=== PATIENT | female | born 1980 | race Caucasian/White ===

== ENCOUNTER 2023-07-16 12:53 | Outpatient (CLI) | payer OTHER, SELFPAY ==
[2023-07-16 14:48] LABS: Basophils # 0.1 K/mm3 (0-0.2); Basophils % 0.5 % (0.1-2.0); Eosinophils # 0.2 K/mm3 (0.0-0.4); Eosinophils % 2.6 % (0.1-12.0); Hematocrit 41.2 % (37.0-47.0); Hemoglobin 13.2 g/dL (12.2-16.2); Lymphocytes # 2.3 K/mm3 (0.7-4.5); Mean Corpuscular Hemoglobin 28.4 pg (27.0-31.2); Mean Corpuscular Volume 88.8 fl (81-99); Mean Platelet Volume 9.7 fl (7.4-10.4); Monocytes # 0.5 K/mm3 (0.1-1.0); Monocytes % 5.9 % (1.7-9.3); Platelet Count 295 K/mm3 (142-424); Red Blood Count 4.64 M/mm3 (4.20-5.40); Red Cell Distribution Width 14.3 % (11.5-17.5); White Blood Count 9.1 K/mm3 (4.8-10.8)
[2023-07-16 15:08] LABS: Chloride 107 mmol/L (98-107); Potassium 3.7 mmoL/L (3.5-5.1); Sodium 140 mmol/L (136-145)
[2023-07-16 15:11] LABS: Alanine Aminotransferase 20 U/L (12-78); Albumin/Globulin Ratio 1.5 (1.1-1.8); Alkaline Phosphatase 73 U/L (38-126); Anion Gap 10.7 mEq/L (5-15); Aspartate Amino Transferase 27 U/L (14-36); Bilirubin,Total 0.4 mg/dl (0.2-1.3); Blood Urea Nitrogen 15 mg/dl (7-17); Calcium 9.1 mg/dl (8.4-10.2); Carbon Dioxide 26 mmol/L (22.0-30.0); Cholesterol 199 mg/dl (140-200); Estimated Glomerular Filt Rate 108 ml/min (>60); GFR (African American) 131 ML/MIN (>60); Globulin 2.7 g/dL (1.3-3.2); Glucose 95 mg/dl (74-100); Total Protein,Serum 6.7 g/dl (6.3-8.2); Triglycerides 325 mg/dl (30-150); VLDL Cholesterol 65 mg/dL (0-40)
[2023-07-16 15:12] LABS: Chol/HDL Ratio 5.9 (1-3.5); HDL Cholesterol 34 mg/dl (40-60)
[2023-07-16 15:22] LABS: Direct LDL Cholesterol 97.87 mg/dL (100-129)
[2023-07-16 15:28] LABS: 25-OH Vitamin D, Total 14.3 ng/mL (30-100)
[2023-07-16 15:45] LABS: Thyroid Stimulating Hormone 3.51 uIU/mL (0.465-4.68)
[2023-07-16 16:04] LABS: Vitamin B12 730 pg/mL (239-931)
[2023-07-16 18:05] LABS: Hemoglobin A1C 5.2 % (4.0-6.0)
== END 2023-07-16 23:59 ==
LOC: LAB.DROPOF 12:53
PROVIDERS: PCP Internal Medicine; Visit Provider Internal Medicine
DX: R53.83 Other fatigue (principal); F41.1 Generalized anxiety disorder; F90.9 Attention-deficit hyperactivity disorder, unspecified type; G25.81 Restless legs syndrome; G56.03 Carpal tunnel syndrome, bilateral upper limbs; M54.41 Lumbago with sciatica, right side; M75.42 Impingement syndrome of left shoulder; E55.9 Vitamin D deficiency, unspecified; Z79.899 Other long term (current) drug therapy
CPT/HCPCS: 80053; 80061; 82306; 82607; 83036; 84443; 85025

== ENCOUNTER 2023-09-04 20:19 | Outpatient (CLI) | payer OTHER, SELFPAY | END 2023-09-04 23:59 | LOC: LAB.DROPOF 20:19 | PROVIDERS: PCP Internal Medicine; Visit Provider Internal Medicine | DX: K13.21 Leukoplakia of oral mucosa, including tongue (principal); B95.7 Other staphylococcus as the cause of diseases classified elsewhere; B96.1 Klebsiella pneumoniae [K. pneumoniae] as the cause of diseases classified elsewhere; Z79.899 Other long term (current) drug therapy | CPT/HCPCS: 87070; 87205 ==

== ENCOUNTER 2023-09-25 13:53 | Outpatient (CLI) | payer OTHER, SELFPAY ==
[2023-09-25 14:12] LABS: Chol/HDL Ratio 6.6 (1-3.5); Cholesterol 271 mg/dl (140-200); HDL Cholesterol 41 mg/dl (40-60); Triglycerides 354 mg/dl (30-150); VLDL Cholesterol 71 mg/dL (0-40)
[2023-09-25 14:24] LABS: Direct LDL Cholesterol 123.23 mg/dL (100-129)
== END 2023-09-25 23:59 ==
LOC: LAB.DROPOF 13:53
PROVIDERS: PCP Internal Medicine; Visit Provider Internal Medicine
DX: E78.5 Hyperlipidemia, unspecified (principal)
CPT/HCPCS: 80061

== ENCOUNTER 2023-10-10 09:18 | Day surgery (SDC) | payer OTHER, SELFPAY ==
[2023-10-07 08:54] VITALS: BMI 24.0
[2023-10-08 13:45] VITALS: BMI 24.0
[2023-10-10 09:36] VITALS: BP 99/64; PULSE 73; RESP 18; TEMP 36.7; O2SAT 97
[2023-10-10] MEDS: LACTATED RINGERS 1000ML 1,000 ML 25 ML IV (09:36)
--- NOTE | 2023-10-10 10:10 | EXP.ANES.CKL ---
[facility] Disclaimer: The information contained in this section may have been updated after the patient was seen, as this information can be updated by other users. Medical History Anxiety Surgical History No significant past surgical history Family History Mother Colon cancer Grandmother Colon cancer Family/Other Colon cancer Social History Smoking Status: Current every day smoker tobacco type: cigarettes alcohol intake: never substance use type: denies use current occupational status: employed Travel in the last 8 weeks: None [facility] Anesthesia Checklist Patient Identification Patient Identification: Arm Band and Family Structural Data Admitted From: Home Planned Operative Procedure/s: Colonoscopy Consent for Planned Operative Procedure(s) Verified: Yes Verified Documents: Surgical Consent and History and Physical NPO Status Verified Time NPO: 00:00 Additional verifications Anesthesia Reactions: No Hx Blood Transfusions: No Blood Transfusion Reaction: No Cephalosporin Allergy: No Previous Colonoscopy: No Airway Assessment Mallampati Score:: Class II C-Spine Mobility Assessed: Yes TMJ Mobility Assessed: Yes Dentition: Edentulous Neurological Assessment Level of Consciousness: Awake, Alert, Appropriate and Follows Commands Hx Seizures: No Numbness or tingling in extremities: No Anesthesia Plan Anesthesia Risk discussed: Yes ASA Class: II Anesthesia Type: MAC Preoperative Comments Pre-Operative Comments: Smoker. 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
[2023-10-10 10:12] LABS: HCG Qualitative, Serum Negative (Negative)
[2023-10-10 10:38] VITALS: O2SAT 97
--- NOTE | 2023-10-10 11:06 | HMH.SCOPE ---
Procedure: Date: 10/10/23 Patient Date of :: 1980 Procedure Performed:: Colonoscopy to terminal ileum with polypectomy using biopsy forceps Indications:: Patient is a 43-year-old female. She is referred for screening colonoscopy. This is initial screening colonoscopy. She has a relatively strong family history of colon cancer with her mother being diagnosed with colon cancer at approximately age 52 as well as her maternal aunt and maternal grandmother having colon cancer. Performing Provider:: Stephen Pollack MD Referring Provider:: Dae Austin MD Sedation:: MAC sedation Procedure:: Patient history was obtained and appropriate physical examination was performed. Patient's medications and allergies were reviewed. Informed consent was obtained after explaining the benefits, alternatives, and risks of the procedure including, but not limited to, bleeding, perforation, missed lesions, and adverse reaction to anesthesia medications. Patient was transported to endoscopy procedure room. Patient was connected to monitoring devices. Throughout the procedure the patient's blood pressure, pulse, and oxygen saturations were monitored continuously. Patient identification and planned procedure were verified by the staff. Patient was positioned in lateral decubitus position. Digital anorectal exam was performed. Variable stiffness Olympus colonoscope was inserted and advanced under direct visualization to the cecum. Adequacy of the colonic preparation was noted. The colonoscope was advanced a short distance into the terminal ileum. The colonoscope was then slowly withdrawn while carefully examining the color, texture, anatomy, and integrity of the mucosoa circumferentially. Within the rectum retroflexion was performed. Colonoscope was then withdrawn. . Impression: Colonic preparation was good but there was some particulate liquid stool which was cleared with trans colonoscopic irrigation and suctioning. She had a diminutive rectosigmoid polyp, likely hyperplastic, removed with cold biopsy forceps. Retroflexion within the rectum revealed suboptimal visualization due to prolapsing mucosa but careful evaluation revealed no evidence of any rectal polyps or masses. . Findings:: Diminutive rectosigmoid polyp Recommendations:: Likely repeat colonoscopy 3 to 5 years given significant family history with polyp pending pathology Complications:: None immediately apparent Estimated blood obtained (mL): 1 Colonoscopy Component Colonoscopy Component Was a colonoscopy performed during today's procedure?: Yes Recommended follow up colonoscopy of at least 10 years?: No If no, follow up colonoscopy recommended in ___ years?: 3-5 Reason for not recommending >/= 10 yr follow-up interval?: Family history, polyp
[2023-10-10 11:10] VITALS: BP 85/53; PULSE 68; RESP 14; TEMP 36.2; O2SAT 96
[2023-10-10 11:20] VITALS: BP 89/54; PULSE 61; RESP 16; O2SAT 97
[2023-10-10 11:30] VITALS: BP 99/65; PULSE 63; RESP 18; O2SAT 99
[2023-10-10 11:40] VITALS: BP 96/62; PULSE 54; RESP 18; O2SAT 100
== END 2023-10-10 11:41 | disposition home or self-care (01) ==
PROVIDERS: PCP Internal Medicine; Visit Provider Surgery
PROC: 0DJD8ZZ Inspection of Lower Intestinal Tract, Via Natural or Artificial Opening Endoscopic (ICD-10-PCS; CPT 45380; principal; 2023-10-10 10:30)
DX: Z12.11 Encounter for screening for malignant neoplasm of colon (principal); Z80.0 Family history of malignant neoplasm of digestive organs; K63.5 Polyp of colon
CPT/HCPCS: 45380; 84703

== ENCOUNTER 2024-07-01 14:40 | Outpatient (CLI) | payer OTHER, SELFPAY ==
[2024-07-01 18:59] LABS: Chol/HDL Ratio 5.4 (1-3.5); Cholesterol 236 mg/dl (140-200); HDL Cholesterol 44 mg/dl (40-60); Triglycerides 308 mg/dl (30-150); VLDL Cholesterol 62 mg/dL (0-40)
[2024-07-01 19:21] LABS: 25-OH Vitamin D, Total 42.2 ng/mL (30-100)
[2024-07-01 20:08] LABS: Direct LDL Cholesterol 109.96 mg/dL (100-129)
== END 2024-07-01 23:59 | disposition home or self-care (01) ==
LOC: LAB.DROPOF 07-02 10:45
PROVIDERS: PCP Internal Medicine; Visit Provider Internal Medicine
DX: E55.9 Vitamin D deficiency, unspecified (principal); E78.1 Pure hyperglyceridemia
CPT/HCPCS: 80061; 82306

== ENCOUNTER 2024-10-21 11:36 | Outpatient (CLI) | payer OTHER, SELFPAY ==
[2024-10-21 18:27] LABS: Basophils # 0.1 K/mm3 (0-0.2); Basophils % 0.8 % (0.1-2.0); Eosinophils # 0.2 Kmm3 (0.0-0.4); Eosinophils % 2.2 % (0.1-12.0); Hematocrit 45.3 % (37.0-47.0); Hemoglobin 14.6 g/dL (12.2-16.2); Lymphocytes # 1.6 K/mm3 (0.7-4.5); Lymphocytes % 18.8 % (10-50); Mean Corpuscular HGB Conc 32.2 g/dL (31.8-35.4); Mean Corpuscular Hemoglobin 28.5 pg (27.0-31.2); Mean Corpuscular Volume 88.3 fl (81-99); Mean Platelet Volume 10.8 fl (7.4-10.4); Monocytes # 0.6 K/mm3 (0.1-1.0); Monocytes % 7.5 % (1.7-9.3); Neutrophils % 70.3 % (37.0-80.0); Nucleated Red Blood Cells # 0 10^3/uL; Nucleated Red Blood Cells % 0 %; Platelet Count 335 K/mm3 (142-424); Red Blood Count 5.13 M/mm3 (4.20-5.40); Red Cell Distribution Width 14.9 % (11.5-17.5); Red Cell Distribution Width-SD 48.9 fL; White Blood Count 8.5 K/mm3 (4.8-10.8)
[2024-10-21 19:12] LABS: Alanine Aminotransferase 17 U/L (12-78); Albumin Level 4.4 g/dl (3.5-5.0); Albumin/Globulin Ratio 1.8 (1.1-1.8); Alkaline Phosphatase 65 U/L (38-126); Anion Gap 9.3 mEq/L (5-15); Aspartate Amino Transferase 25 U/L (14-36); Bilirubin,Total 0.3 mg/dl (0.2-1.3); Blood Urea Nitrogen 14 mg/dl (7-17); Calcium 9.8 mg/dl (8.4-10.2); Carbon Dioxide 26 mmol/L (22.0-30.0); Chloride 107 mmol/L (98-107); Chol/HDL Ratio 5.9 (1-3.5); Cholesterol 212 mg/dl (140-200); Estimated Glomerular Filt Rate 90 ml/min (>60); GFR (African American) 109 ML/MIN (>60); Globulin 2.5 g/dL (1.3-3.2); Glucose 79 mg/dl (74-100); HDL Cholesterol 36 mg/dl (40-60); Potassium 4.3 mmoL/L (3.5-5.1); Sodium 138 mmol/L (136-145); Total Protein,Serum 6.9 g/dl (6.3-8.2); Triglycerides 394 mg/dl (30-150); VLDL Cholesterol 79 mg/dL (0-40)
[2024-10-21 19:30] LABS: Direct LDL Cholesterol 86.87 mg/dL (100-129)
[2024-10-21 19:36] LABS: 25-OH Vitamin D, Total 40.4 ng/mL (30-100)
[2024-10-21 19:46] LABS: Thyroid Stimulating Hormone 2.04 uIU/mL (0.465-4.68)
== END 2024-10-21 23:59 | disposition home or self-care (01) ==
LOC: LAB.DROPOF 10-22 12:44
PROVIDERS: PCP Family Medicine; Visit Provider Family Medicine
DX: E55.9 Vitamin D deficiency, unspecified (principal); E78.1 Pure hyperglyceridemia
CPT/HCPCS: 80053; 80061; 82306; 84443; 85025